=== PATIENT | male | born 1970 | race Caucasian/White ===

== ENCOUNTER → 2021-04-19 | Day surgery (SDC) | payer OTHER ==
[~2021-04-19] VITALS: Ht 177.8 cm; Wt 77.1 kg
[~2021-04-19] MED LIST: ATORVASTATIN CA20 MG PO; MVI PO
== END | disposition home or self-care (01) ==
LOC: FAS 07:13
DX: Z12.11 Encounter for screening for malignant neoplasm of colon (principal); K63.5 Polyp of colon; M19.90 Unspecified osteoarthritis, unspecified site; I10 Essential (primary) hypertension; E78.00 Pure hypercholesterolemia, unspecified; E03.9 Hypothyroidism, unspecified; G35 Multiple sclerosis; L40.9 Psoriasis, unspecified; Z79.899 Other long term (current) drug therapy; Z90.89 Acquired absence of other organs; Z86.010 Personal history of colon polyps; Z80.0 Family history of malignant neoplasm of digestive organs
CPT/HCPCS: 93005; J2250; J7120